=== PATIENT | female | born 2000 ===

== ENCOUNTER 2019-07-04 04:55 | Emergency (ER) | payer MEDICAID ==
[~2019-07-04] VITALS: Ht 162.6 cm; Wt 55.9 kg
[2019-07-04 05:05] VITALS: BP 134/85; TEMP 98.4
[2019-07-04 05:21] LABS: COLLECTION METHOD CLEAN CATCH
[2019-07-04 05:25] LABS: BASO % 0.5 % (0.0-2.0); EOS # 0.1 (0.0-0.7); EOS % 1.4 % (0-4.0); GRAN # 4.1 (1.4-6.5); GRAN % 62.4 % (42.2-75.2); HEMATOCRIT 40.4 % (35.0-45.0); HEMOGLOBIN 13.8 g/dl (12.0-15.0); LYMPH # 1.6 (1.2-3.4); MEAN CELL VOLUME 92 fl (80.0-95.0); MEAN CORPUSCULAR HEMOGLOBIN 31 pg (26.0-32.0); MEAN CORPUSCULAR HGB CONC 34 g/dl (33.0-37.0); MEAN PLATELET VOLUME 10.6 fl (7.4-10.4); MONO # 0.7 (0.1-0.6); MONO % 10.4 % (1.7-9.3); PLATELET COUNT 228 K/mm3 (130-400); RED BLOOD COUNT 4.41 M/mm3 (4.10-5.30); REDCELL DISTRIBUTION WIDTH-CV 12.3 % (11.5-14.5)
[2019-07-04 05:31] LABS: MUCOUS Present /lpf; PH 6 (5-8); SQUAMOUS EPITHELIAL 0-2 /hpf; URINE APPEARANCE Clear; URINE BACTERIA Rare /hpf; URINE BILIRUBIN Negative (NEGATIVE); URINE BLOOD 3+ (NEGATIVE); URINE COLOR Yellow; URINE GLUCOSE Negative (NEGATIVE); URINE KETONE 2+ (NEGATIVE); URINE LEUKOCYTE ESTERASE Negative (NEGATIVE); URINE NITRATE Negative (NEGATIVE); URINE PROTEIN(semi-quant) Negative (NEGATIVE); URINE UROBILINOGEN Negative (NEGATIVE)
[2019-07-04] MEDS ORDERED: PRENATAL FORMU1 EAC3 PO (06:00)
[2019-07-04 08:25] VITALS: PULSE 70
== END 2019-07-04 08:25 | disposition home or self-care (01) ==
LOC: COL.ER 04:55
PROVIDERS: Emergency Medicine
DX: O20.0 Threatened abortion (principal); Z3A.18 18 weeks gestation of pregnancy; Z67.91 Unspecified blood type, Rh negative
CPT/HCPCS: J2791

== ENCOUNTER 2020-01-28 06:32 | Inpatient (IN) | payer MEDICAID ==
[~2020-01-28] VITALS: Ht 162.6 cm; Wt 71.8 kg
[~2020-01-28 06:32] MED LIST: PRENATAL FORMU1 EAC3 PO
[2020-01-29] VITALS (40 sets, daily range): BP systolic 104–171; BP diastolic 55–92; PULSE 60–134; TEMP 98–99.3
--- NOTE | 2020-01-29 07:30 | NUR ---
0730-G1 39.4 Week ambulatory to LR 5 for scheduled induction of labor. Reports GFM, Denies LOF or contractions. Assisted into gown and placed on EFM. 0755-IV to right hand, blood collected and sent to lab. LR infusing per orders. Pen G started per orders and GBS + protocol. Assessment complete. Consents reviewed and signed. 0810-Dr. Nelson on unit. Reviewed EFM with . 0815-Pitocin per protocol at 2mu/min. 0838-Bedside Sono by Dr. Nelson. Vertex confirmed by . Repositioned WR. Updated on plan of care.
[2020-01-29 09:03] LABS: BASO % 0.2 % (0.0-2.0); EOS # 0.1 (0.0-0.7); GRAN # 6.7 (1.4-6.5); GRAN % 73.2 % (42.2-75.2); HEMOGLOBIN 11.7 g/dl (12.0-15.0); LYMPH # 1.5 (1.2-3.4); LYMPH % 16.2 % (20.0-51.0); MEAN CELL VOLUME 94 fl (80.0-95.0); MEAN CORPUSCULAR HEMOGLOBIN 32 pg (26.0-32.0); MEAN CORPUSCULAR HGB CONC 34 g/dl (33.0-37.0); MEAN PLATELET VOLUME 12.7 fl (7.4-10.4); MONO # 0.8 (0.1-0.6); PLATELET COUNT 195 K/mm3 (130-400); RED BLOOD COUNT 3.63 M/mm3 (4.10-5.30); REDCELL DISTRIBUTION WIDTH-CV 12.6 % (11.5-14.5)
--- NOTE | 2020-01-29 10:45 | NUR ---
1045-Patient requests something for pain controll. Discussed options. Patient desires IV pain managment. SVE by RN . Dr. Nelson contacted and message left. 1100-Dr. Nelson to room. SVE by , AROM clear fluid. Repositioned RL with peanut ball. Order recieved for 50mcg IV fentanyl. 1115-50mcg IV fentanyl given per order,see EMAR.
--- NOTE | 2020-01-29 12:40 | NUR ---
1240-Dr. Nelson updated on SVE /-2 and patient with emesis. Remains unblocked. Order for zofran recieved. 1248-8mg IV zofran given, see EMAR. 1250-Patient requests epidura. 1300-LLizz RADIOLOGY SUPERVISOR notified of patient 1323-LXuanWilfredoRADIOLOGY SUPERVISOR administers test dose. Patient tolerates well, see anesthesia record and flow record. Patient repositioned WR and then WL. FHR with Recurrent variables. 1400-SVE /+1, Dr. Nelson notified. 1410-Patient begins pushing with RN at bedside with contractions. Moves vertex. 1455-Dr. Nelson updated, see MD notification. 1515-Dr. Nelson requested for delivery.
--- NOTE | 2020-01-29 15:28 | NUR ---
1528-Dr. Nelson to room. Patient prepped for delivery. 1530-Patient pushes with Dr. Nelson at bedside and with contraction. Moves vertex well. 1538-Spontaneous delivery of infant head immediately followed by body. Infant to mothers abdomen and cord clamped x2 by MD and cut by FOB. Care of infant assumed by JAMES Pratt Viable female apgars 7/9. 1541-Spontaneous delivery of intact placenta. EBL 200ml. Lochia WNL. Fundal massage firm. Pitocin bolus per protocol and MD order. 2nd degree vaginal and perineal lac reapaired by MD. Brittany care provided and patient updated on recovery plan of care.
[2020-01-30] VITALS: BP 120/69; PULSE 89; TEMP 99.1
[2020-01-30 06:56] LABS: HEMOGLOBIN 10.7 g/dl (12.0-15.0)
[2020-01-30 07:05] LABS: HEMATOCRIT 31.4 % (35.0-45.0)
[2020-01-30 07:40] VITALS: BP 122/82; PULSE 87; TEMP 98.8
[2020-01-30] MEDS ORDERED: IBU600 MG PO (09:36)
[2020-01-30 11:35] VITALS: BP 93/79; PULSE 81; TEMP 98.6
[2020-01-30 17:00] VITALS: BP 129/67; PULSE 93; TEMP 98.6
[2020-01-30 21:00] VITALS: BP 121/80; PULSE 77; TEMP 98.3
[2020-01-31 06:30] VITALS: BP 124/76; PULSE 92; TEMP 98.7
== END 2020-01-31 14:45 | disposition home or self-care (01) | DRG 807 ==
LOC: LDR 01-29 06:31 → OB 01-29 18:42
PROVIDERS: ADMIT Obstetrics & Gynecology
PROC: 10E0XZZ Delivery of Products of Conception, External Approach (ICD-10-PCS; principal; 2020-01-29)
PROC: 0KQM0ZZ Repair Perineum Muscle, Open Approach (ICD-10-PCS; 2020-01-29)
PROC: 10907ZC Drainage of Amniotic Fluid, Therapeutic from Products of Conception, Via Natural or Artificial Opening (ICD-10-PCS; 2020-01-29)
PROC: 3E033VJ Introduction of Other Hormone into Peripheral Vein, Percutaneous Approach (ICD-10-PCS; 2020-01-29)
DX: O99.824 Streptococcus B carrier state complicating childbirth (principal); Z37.0 Single live birth; O36.5930 Maternal care for other known or suspected poor fetal growth, third trimester, not applicable or unspecified; O70.1 Second degree perineal laceration during delivery; Z3A.39 39 weeks gestation of pregnancy
CPT/HCPCS: J2405; J2540; J2590; J3010; J7120